=== PATIENT | female | born 1995 | race Caucasian/White ===

== ENCOUNTER 2022-11-25 05:55 | Day surgery (SDC) | payer BC ==
[2022-11-22 13:44] VITALS: BP 110/69
[2022-11-22 14:25] LABS: BASOPHIL % 0.2 % (0.0-0.2); EOSINOPHIL # 0.1 10^3/uL (0.0-0.2); LYMPHOCYTES # 1.98 10^3/uL1 (1.0-4.8); LYMPHOCYTES % 41.5 % (24.0-44.0); MONOCYTES # 0.4 10^3/uL (0.3-0.8); MONOCYTES % 8.8 % (5.0-12.0); NEUTROPHIL # 2.3 10^3/uL (1.8-7.7); NEUTROPHILS % 48.5 % (41.0-85.0); PLATELET COUNT 292 10^3/uL (150-400); RED CELL DISTRIBUTION WIDTH 13.1 % (11.5-14.5)
[2022-11-22 14:42] LABS: CARBON DIOXIDE 22.6 mmol/L (20.0-32)
[~2022-11-25] VITALS: Ht 152.4 cm; Wt 74.4 kg
[2022-11-25] VITALS (12 sets, daily range): BP systolic 101–144; BP diastolic 52–90
[~2022-11-25 05:55] MED LIST: LACTATED RINGERS 1,000 ML ONE; METF500T17 PO
[2022-11-25] MEDS ORDERED: LACTATED RINGERS 1,000 ML IV SCH (06:00)
[2022-11-25] MEDS ORDERED: SODIUM CHLORIDE IRR BOTTLE IR ONE (07:07)
[2022-11-25] MEDS ORDERED: NS 3000ML IRR IR ONE (07:23)
[2022-11-25] MEDS ORDERED: OFIRMEV 100 ML IV ONE (07:33)
[2022-11-25] MEDS ORDERED: TORADOL ONE (07:33)
[2022-11-25] MEDS ORDERED: ZOFRAN ONE (07:34)
[2022-11-25] MEDS ORDERED: DIPRIVAN IV ONE (07:34)
[2022-11-25] MEDS ORDERED: DECADRON ONE (07:34)
[2022-11-25] MEDS ORDERED: SUBLIMAZE ONE (07:34)
[2022-11-25] MEDS ORDERED: XYLOCAINE 2% 5ML VIAL ONE (07:34)
--- NOTE | 2022-11-25 09:31 | OPH ---
DATE OF SURGERY: 11/25/2022 DICTATOR NAME: Shad Hewitt MD PREOPERATIVE DIAGNOSIS: Parameniscal cyst of the right knee. POSTOPERATIVE DIAGNOSIS: Parameniscal cyst of the right knee. OPERATIVE PROCEDURE: Arthroscopy of the right knee with excision of synovial cyst, right knee. SURGEON: Shad Hewitt MD ANESTHESIA: LMA. TOURNIQUET TIME: 19 minutes at 300. BLOOD LOSS: 5 mL DESCRIPTION OF INDICATIONS: The patient is a 27-year-old female with pain and swelling about the medial aspect of her right knee for approximately 1 year. She was complaining of pain and popping about the knee. She was no better with anti-inflammatories or home exercise program. The plain x-rays were negative. She had obvious swelling about the medial joint line of the knee with good medial and lateral stability as well as anterior and posterior stability. The MRI scan showed a parameniscal cyst at the level of the MCL, but no obvious meniscal tear. The patient was taken to the operating room for arthroscopy and cyst decompression. DESCRIPTION OF PROCEDURE: The patient was placed on the operating table in the supine position. LMA anesthetic was induced without difficulty. The patient had the right thigh padded and a tourniquet was applied. The right lower extremity was sterilely prepped and draped. The leg was elevated and the tourniquet was inflated to 300. Arthroscopy portals were made superolateral, anterolateral, and anteromedial. The outflow cannula was superolateral. The arthroscope was anterolateral. Her suprapatellar pouch was normal with no synovitis or loose bodies. The articular cartilage about the patellofemoral joint was normal. The lateral gutter was normal. The peripheral edge of the lateral meniscus was normal. The medial gutter was noted to have a large cystic mass from the articular side. Did not obviously appear to communicate with the medial meniscus. The arthroscope was introduced into the medial compartment. The articular cartilage was normal proximally and distally. The medial meniscus was probed and visualized throughout and there were no meniscal tears noted. The intercondylar notch was viewed and the anterior and posterior cruciate ligaments were normal. Lateral compartment was viewed in the [id number] position. The lateral meniscus was normal as was the articular cartilage. The scope was then placed back into the medial gutter. Using the shaver, the cyst was easily decompressed from the inside of the knee. Once the cyst was completely decompressed and the arthroscopic instruments were removed from the knee, the portal tracts were closed with 3-0 Ethilon in an interrupted manner. Compressive dressing consisting of Adaptic, 4 x 4's, cast padding, and Dakota wrap was applied. Tourniquet was released and the patient was extubated in the operating room and sent to recovery in stable condition. Shad Hewitt MD DR: MEGAN/KVNG TID: [id number] RECEIPT: [id number]
== END 2022-11-25 13:01 | disposition home or self-care (01) ==
LOC: SDC 05:55
PROVIDERS: ATTEND Orthopaedic Surgery
DX: M25.861 Other specified joint disorders, right knee (principal); M25.561 Pain in right knee; M23.031 Cystic meniscus, other medial meniscus, right knee; Z79.899 Other long term (current) drug therapy; Z87.891 Personal history of nicotine dependence; Z79.4 Long term (current) use of insulin; Z98.890 Other specified postprocedural states; Z98.891 History of uterine scar from previous surgery; Z72.89 Other problems related to lifestyle
CPT/HCPCS: 80053; 85025; 36415; 29999; 81025; 82948 ×2; J7120; A4217 ×2; A4649 ×3; J1100; J0131; J3490; J2001; J2405; J1885; J3010

== ENCOUNTER 2022-12-01 13:36 | Emergency (ER) | payer BC ==
[~2022-12-01] VITALS: Ht 152.4 cm; Wt 73.5 kg
[~2022-12-01 13:36] MED LIST changes: -LACTATED RINGERS 1,000 ML ONE
--- NOTE | 2022-12-01 13:43 | NUR ---
[facility]IV[facility] PT ARRIVED AMBULATORY TO ED 6 WITH C/O RIGHT CALF CRAMPING SINCE TUESDAY. PT SAW HER PCP AND WAS TOLD TO COME HERE FOR A POSSIBLE BLOOD CLOT. VITALS TAKEN AND NOTIFIED.
[2022-12-01 13:53] VITALS: BP 121/79
[2022-12-01 13:57] VITALS: BP 121/79
--- NOTE | 2022-12-01 14:25 | ER.PDOC ---
General Chief Complaint: Extremities Stated Complaint: RT LEG PAIN Time seen by MD: 14:23 Source: patient Exam Limitations: no limitations History of Present Illness Initial Comments Right leg pain for 4 days. No fever or chills. Patient had right knee surgery for cyst removal a week ago. Pain is more like cramps in the calf, comes and goes. Recent Injury: No Severity: moderate Exacerbated By: walking movement Relieved By: nothing Allergies: Coded Allergies: No Known Allergies (Unverified , 11/22/22) Home Meds Reported Medications Metformin Hcl (METFORMIN HCL) 500 Mg Tablet, 1 TAB PO BID, #60 TAB 3 Refills 11/22/22 Past Medical History Medical History: diabetes Surgical History: Family History Significant Family History: no pertinent family hx Social History Smoking: non-smoker Alcohol Use: none Drug Use: none Review of Systems Constitutional: no symptoms reported Respiratory: no symptoms reported Cardiovascular: no symptoms reported Gastrointestinal: no symptoms reported Genitourinary: no symptoms reported Musculoskeletal: see HPI All Other Systems: Reviewed and Negative Physical Exam General Appearance: Alert, No Apparent Distress Lower Extremity: nml inspection, non-tender, no pedal edema Joint Exam: joints nml, nml ROM, nml gait/weight bearing Vascular: no vascular compromise, pulses full/equal Neuro/Psych: sensation nml, motor nml, oriented x3, CN's nml as tested, mood/affect nml Skin: color nml, warm/dry, no rash Back/Neck: nml inspection EENT: eyes inspection nml, ENT inspection nml, pharynx nml Respiratory: no resp distress, breath sounds nml CVS: reg rate & rhythm, heart sounds nml Abdomen: non-tender, no organomegaly, no bruit/mass Comments Knee surgical wounds healing well. No signs of infection. Results/Orders Results/Orders Orders - JEWELL ALVAREZ MD Cbc With Auto Diff (12/01/22 14:16) PT (12/01/22 14:16) Partial Thromboplastin Time. (12/01/22 14:16) D-Dimer (12/01/22 14:16) Basic Metabolic Panel (12/01/22 14:16) Vital Signs Date Time Temp Pulse Resp B/P (MAP) Pulse Ox O2 Delivery O2 Flow Rate FiO2 12/01/22 13:57 98.4 97 18 121/79 (93) 95 Room Air* 0 21 12/01/22 13:53 98.4 97 18 12/01/22 13:53 98.4 97 18 121/79 (93) 95 Room Air* 0 21 12/01/22 13:53 98.4 97 18 95 Laboratory Tests Test 12/01/22 14:25 White Blood Count 6.3 10^3/uL (4.5-11.0) Red Blood Count 4.17 10^6/uL (4.00-5.20) Hemoglobin 13.3 g/dL (12.0-15.0) Hematocrit 39.0 % (36.0-46.0) Mean Corpuscular Volume 93.5 fL (78-100) Mean Corpuscular Hemoglobin 31.9 pg (26-34) Mean Corpuscular Hemoglobin Concent 34.1 g/dL (33-36.5) Red Cell Distribution Width 13.1 % (11.5-14.5) Platelet Count 270 10^3/uL (150-400) Mean Platelet Volume 9.1 fL (7.8-11.0) Neutrophils (%) (Auto) 64.2 % (41.0-85.0) Lymphocytes (%) (Auto) 29.3 % (24.0-44.0) Monocytes (%) (Auto) 5.7 % (5.0-12.0) Neutrophils # (Auto) 4.1 10^3/uL (1.8-7.7) Lymphocytes # (Auto) 1.85 10^3/uL1 (1.0-4.8) Monocytes # (Auto) 0.4 10^3/uL (0.3-0.8) Absolute Immature Granulocyte (auto 0.01 10^3 u/L (0-2) Absolute Eosinophils (auto) 0.0 10^3/uL (0.0-0.2) Immature Granulocytes % 0.20 % (0.00-0.50) Eosinophils % 0.3 % (0.0-5.0) Basophils % 0.3 % (0.0-0.2) H Basophils # 0.0 10^3/uL (0.0-0.1) Prothrombin Time 10.4 SEC (9.1-11.5) Prothrombin Time INR (Non-Therap) 1.0 Activated Partial Thromboplast Time 23.9 SEC (22.5-33.1) D-Dimer 0.27 mg/L (0.19-0.49) Sodium Level 139 mmol/L (132-145) Potassium Level 3.7 mmol/L (3.6-5.2) Chloride Level 104.0 mmol/L (96-109) Carbon Dioxide Level 27.3 mmol/L (20.0-32) Glucose Level 97 mg/dL (70-110) Blood Urea Nitrogen 12 mg/dL (7-18) Creatinine 0.65 mg/dL (0.59-1.40) Calcium Level 9.7 mg/dL (8.4-10.5) Anion Gap 11.4 Estimated GFR () 130.4 (>/=60) Est GFR (CKD-EPI)(Non-Afr Lebanese) 107.8 (>/=60) BUN/Creatinine Ratio 18.0 Progress Progress WBC 6.3, D-dimer is 6.27. When examined the R leg, there was no tenderness. Patient told me that her cramps are intermittent. She did not need to have pain medicine in the emergency room. She is discharged in stable condition. ER DEPART Departure Time of Disposition: 15:13 Disposition: 01 HOME / SELF CARE / HOMELESS Impression: Primary Impression: Leg pain, right Additional Impression: Leg cramps Condition: Stable Referrals: LA FISHER PA-C (PCP) PRIMARY CARE PROVIDER Additional Instructions: Methocarbamol Ibuprofen Stretch and massage right calf Apply heat to cold F/U with your PCP in 2-3 days Follow-up with your surgeon in 2 to 3 days Return to ED if worsening or concerns Duration or Time Spent with Pa: 10 min Problem Qualifiers JEWELL ALVAREZ MD Dec 01, 2022 14:25
[2022-12-01 14:34] LABS: BASOPHIL % 0.3 % (0.0-0.2); EOSINOPHIL % 0.3 % (0.0-5.0); LYMPHOCYTES # 1.85 10^3/uL1 (1.0-4.8); LYMPHOCYTES % 29.3 % (24.0-44.0); MEAN CORP HGB 31.9 pg (26-34); MONOCYTES # 0.4 10^3/uL (0.3-0.8); MONOCYTES % 5.7 % (5.0-12.0); NEUTROPHIL # 4.1 10^3/uL (1.8-7.7); NEUTROPHILS % 64.2 % (41.0-85.0); PLATELET COUNT 270 10^3/uL (150-400); RED CELL DISTRIBUTION WIDTH 13.1 % (11.5-14.5)
[2022-12-01 14:44] LABS: CARBON DIOXIDE 27.3 mmol/L (20.0-32)
== END 2022-12-01 15:20 | disposition home or self-care (01) ==
LOC: ER 13:36
DX: M79.604 Pain in right leg (principal); R25.2 Cramp and spasm; E11.9 Type 2 diabetes mellitus without complications; Z98.890 Other specified postprocedural states
CPT/HCPCS: 36415; 80048; 85025; 85379; 85610; 85730; 99283